=== PATIENT | male | born 1965 | race Caucasian/White ===

== ENCOUNTER 2023-07-05 06:44 | Day surgery (SDC) | payer MEDICAID ==
[~2023-07-05] VITALS: Ht 177.8 cm; Wt 113.6 kg
[~2023-07-05 06:44] MED LIST: ATOR40TA71 PO; CHOL100062 PO; LISI10TA24 PO; METF-446 PO; PIOG30TA70 PO; SODIUM CHLORIDE 0.9% 1,000 ML IV ONE
[2023-07-05] MEDS ORDERED: LIDOCAINE/PF 2% 5 ML VIAL IM ONE (06:45)
[2023-07-05] MEDS ORDERED: PROPOFOL 1% 20 ML VIAL IVP ONE (06:45)
[2023-07-05] MEDS ORDERED: DEXAMETHASONE SOD PHOS 4 MG/ML VIAL IVP ONE (06:45)
[2023-07-05] MEDS ORDERED: ONDANSETRON HCL 4 MG/2 ML VIAL IVP ONE (06:45)
[2023-07-05] MEDS ORDERED: SODIUM CHLORIDE 0.9% 1,000 ML ONE (06:47)
[2023-07-05 07:56] LABS: GLUCOMETER DEV NAME(LOC) SDS.
== END 2023-07-05 10:35 | disposition home or self-care (01) ==
LOC: SURGERY 06:44
PROVIDERS: ATTEND Internal Medicine Gastroenterology
DX: K57.30 Diverticulosis of large intestine without perforation or abscess without bleeding (principal); K64.9 Unspecified hemorrhoids; Z79.899 Other long term (current) drug therapy; Z93.3 Colostomy status; Z98.890 Other specified postprocedural states; Z88.8 Allergy status to other drugs, medicaments and biological substances; E11.9 Type 2 diabetes mellitus without complications; E78.5 Hyperlipidemia, unspecified
CPT/HCPCS: 45380; 82962; C1769; J2704; J1100; J3490; J2405; J7030; 88305